=== PATIENT | male | born 1965 | race Caucasian/White ===

== ENCOUNTER 2019-11-13 18:26 | Inpatient (IN) | payer BC ==
[~2019-11-13] VITALS: Ht 188 cm; Wt 102.6 kg
--- NOTE | 2019-11-13 18:49 | NUR ---
BIB EMS FROM [facility]. PT C/O CP RADIATING DOWN LEFT ARM WHILE DOING YARDWORK THIS AM, NO RELIEF WITH REST. PT INITIAL TROP LEVEL NEGATIVE, THEN 1645 TROP 0.23. 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 PT CONNECTED TO MONITORING. WARM BLANKET PROVIDED. MD AT BEDSIDE FOR ASSESSMENT. PT TO BE ADMITTED.
[2019-11-13] MEDS ORDERED: morphine SULFATE 10 MG/ML, 1ML IV PRN (19:30)
[2019-11-13] MEDS ORDERED: HEPARIN 5,000 UNITS/ML, 1ML SQ SCH (19:30)
[2019-11-13] MEDS ORDERED: NITROGLYCERIN 0.4 MG/SPRAY SL PRN (19:30)
--- NOTE | 2019-11-13 19:31 | NUR ---
NOTIFIED VICKI BALDERAS OF [facility]. Addendum: 11/13/19 at 1932 by ALFONSO DAVID GARVIN
--- NOTE | 2019-11-13 20:17 | NUR ---
REPORT GIVEN TO IRVIN WADDELL.
[2019-11-13 20:44] VITALS: BP 151/86
[2019-11-13] MEDS ORDERED: HEPARIN 5,000 UNITS/ML, 1ML IV ONE (21:00)
[2019-11-13] MEDS ORDERED: HEPARIN 5,000 UNITS/ML, 1ML IV PRN (21:00)
[2019-11-13] MEDS ORDERED: HEPARIN 25,000 UNITS/250ML PMX 250 ML IV PRN (21:00)
[2019-11-13] MEDS: SODIUM CHLORIDE FLUSH 10ML SYR IVF SCH (21:16)
[2019-11-13] MEDS: ATORVASTATIN 40 MG TABLET PO SCH (21:17)
[2019-11-13] MEDS: DIPHENHYDRAMINE 50 MG CAPSULE PO PRN (21:17)
[2019-11-13] MEDS ORDERED: ONDANSETRON 2MG/ML, 2ML IVPush ONE (21:30)
[2019-11-13 21:57] VITALS: BP 148/70
[2019-11-14] MEDS: ACETAMINOPHEN 325 MG TABLET PO PRN ×3 (01:01→15:44)
[2019-11-14 01:07] VITALS: BP 146/70
[2019-11-14] MEDS: TEMAZEPAM 15 MG CAPSULE PO PRN (01:43)
[2019-11-14 02:12] LABS: MEAN CORPUSCULAR HEMOGLOBIN 31.1 pg (27.5-34.5); MEAN CORPUSCULAR HGB CONC 33.2 g/dL (33.2-36.2); MEAN CORPUSCULAR VOLUME 93.6 fL (81-97); MEAN PLATELET VOLUME 8.6 fL (7.4-10.4); PLATELET COUNT 207 x10^3/uL (130-400); RED BLOOD COUNT 4.59 x10^6/uL (4.38-5.82); RED CELL DISTRIBUTION WIDTH 13.8 % (9.4-14.8)
[2019-11-14 02:32] LABS: BASOPHILS # (AUTO) 0.01 x10^3/uL (0-0.1); BASOPHILS % (AUTO) 0 % (0-1); EOSINOPHILS # (AUTO) 0.02 x10^3/uL (0-0.4); EOSINOPHILS % (AUTO) 0 % (1-7); LYMPHOCYTES # (AUTO) 1.59 x10^3/uL (1-3.4); LYMPHOCYTES % (AUTO) 9 % (22-44); MD SCAN; MONOCYTES # (AUTO) 0.33 x10^3/uL (0.2-0.8); MONOCYTES % (AUTO) 2 % (2-9); NEUTROPHILS % (AUTO) 89 % (42-75)
[2019-11-14 05:50] VITALS: BP 124/73
[2019-11-14] MEDS: ASPIRIN 325 MG TABLET EC PO SCH (06:05)
[2019-11-14] MEDS: CARVEDILOL 3.125 MG TABLET PO SCH ×2 (06:05→18:10)
[2019-11-14 08:36] LABS: ALBUMIN 3.5 g/dL (3.4-5.0); ANION GAP 4 mmol/L (5-15); CALCIUM 8.9 mg/dL (8.5-10.1); CHLORIDE 108 mmol/L (98-107)
[2019-11-14 08:42] VITALS: BP 122/81
[2019-11-14 08:42] LABS: ALANINE AMINOTRANSFERASE 49 U/L (12-78); ALKALINE PHOSPHATASE 67 U/L (45-117); BILIRUBIN,TOTAL 0.5 mg/dL (0.2-1.0); CHOL/HDL RATIO 5.9; CHOLESTEROL, TOTAL 234 mg/dL (140-239); CREATININE 0.95 mg/dL (0.7-1.3); HDL CHOL % 17 % (26-37); HDL CHOLESTEROL (DIRECT) 40 mg/dL (40-60); LDL CHOLESTEROL,CALCULATED 159 mg/dL (54-169); TOTAL PROTEIN 7.2 g/dL (6.4-8.2); TRIGLYCERIDES 173 mg/dL (50-200); VLDL CHOLESTEROL 35 mg/dL (0-25)
[2019-11-14] MEDS: LISINOPRIL 5 MG TABLET PO SCH (08:48)
[2019-11-14] MEDS: SODIUM CHLORIDE FLUSH 10ML SYR IVF SCH ×2 (08:49→20:58)
[2019-11-14] MEDS ORDERED: SODIUM CHLORIDE 0.9% 1,000 ML IV SCH (11:00)
[2019-11-14] MEDS ORDERED: MIDAZOLAM 1 MG/ML, 5ML ONE (13:29)
[2019-11-14] MEDS ORDERED: PRASUGREL 10 MG TABLET ONE (13:29)
[2019-11-14] MEDS ORDERED: VERAPAMIL 2.5 MG/ML, 2ML ONE (13:29)
[2019-11-14] MEDS ORDERED: FENTANYL PF 100 MCG/2ML ONE (13:29)
[2019-11-14] MEDS ORDERED: LIDOCAINE-MPF 1%, 5ML ONE (13:30)
[2019-11-14] MEDS ORDERED: HEPARIN 1,000 UNITS/ML, 10ML ONE (13:30)
[2019-11-14] MEDS ORDERED: BIVALIRUDIN 250 MG ONE (13:30)
[2019-11-14] MEDS ORDERED: ONDANSETRON 2MG/ML, 2ML ONE (13:39)
[2019-11-14] MEDS ORDERED: BIVALIRUDIN 250 MG in SODIUM CHLORIDE 0.9% 50 ML IV SCH (14:14)
[2019-11-14 14:36] VITALS: BP 119/77
[2019-11-14] MEDS: SODIUM CHLORIDE 0.9% 1,000 ML IV SCH ×2 (15:16→22:14)
[2019-11-14 20:51] VITALS: BP 122/83
[2019-11-14] MEDS: DIPHENHYDRAMINE 50 MG CAPSULE PO PRN (20:58)
[2019-11-14] MEDS: ATORVASTATIN 40 MG TABLET PO SCH (20:58)
[2019-11-15] VITALS (7 sets, daily range): BP systolic 100–143; BP diastolic 67–86
[2019-11-15] MEDS: TEMAZEPAM 15 MG CAPSULE PO PRN (00:22)
[2019-11-15 04:56] LABS: BASOPHILS # (AUTO) 0.05 x10^3/uL (0-0.1); BASOPHILS % (AUTO) 0 % (0-1); EOSINOPHILS % (AUTO) 1 % (1-7); LYMPHOCYTES # (AUTO) 3.59 x10^3/uL (1-3.4); LYMPHOCYTES % (AUTO) 26 % (22-44); MD NO; MEAN CORPUSCULAR HGB CONC 32.7 g/dL (33.2-36.2); MEAN CORPUSCULAR VOLUME 94.9 fL (81-97); MEAN PLATELET VOLUME 8.4 fL (7.4-10.4); MONOCYTES # (AUTO) 1.19 x10^3/uL (0.2-0.8); MONOCYTES % (AUTO) 9 % (2-9); NEUTROPHILS # (AUTO) 9.05 x10^3/uL (1.8-6.8); NEUTROPHILS % (AUTO) 65 % (42-75); PLATELET COUNT 175 x10^3/uL (130-400); RED BLOOD COUNT 4.38 x10^6/uL (4.38-5.82); RED CELL DISTRIBUTION WIDTH 14.3 % (9.4-14.8)
[2019-11-15 05:04] LABS: ANION GAP 6 mmol/L (5-15); CALCIUM 8.4 mg/dL (8.5-10.1); CHLORIDE 109 mmol/L (98-107)
[2019-11-15 05:06] LABS: CREATININE 0.85 mg/dL (0.7-1.3)
[2019-11-15] MEDS: SODIUM CHLORIDE 0.9% 1,000 ML IV SCH ×2 (06:14→14:20)
[2019-11-15] MEDS: CARVEDILOL 3.125 MG TABLET PO SCH ×2 (06:23→17:52)
[2019-11-15] MEDS: ASPIRIN 325 MG TABLET EC PO SCH (06:23)
[2019-11-15] MEDS: PRASUGREL 10 MG TABLET PO SCH (08:48)
[2019-11-15] MEDS: SODIUM CHLORIDE FLUSH 10ML SYR IVF SCH ×2 (08:48→20:11)
[2019-11-15] MEDS: LISINOPRIL 5 MG TABLET PO SCH (08:48)
[2019-11-15 10:08] LABS: ALBUMIN 3.2 g/dL (3.4-5.0)
[2019-11-15 11:02] LABS: BILIRUBIN, DIRECT 0.1 mg/dL (0.1-0.2); BILIRUBIN,INDIRECT 0.6 mg/dL (0.0-2.0); BILIRUBIN,TOTAL 0.7 mg/dL (0.2-1.0)
[2019-11-15] MEDS: ACETAMINOPHEN 325 MG TABLET PO PRN (17:56)
[2019-11-15] MEDS: ATORVASTATIN 40 MG TABLET PO SCH (20:10)
[2019-11-16 00:17] VITALS: BP 105/61
[2019-11-16] MEDS: TEMAZEPAM 15 MG CAPSULE PO PRN (00:18)
[2019-11-16] MEDS: ASPIRIN 325 MG TABLET EC PO SCH (06:00)
[2019-11-16 06:08] LABS: CHLORIDE 107 mmol/L (98-107)
[2019-11-16 06:15] LABS: ALANINE AMINOTRANSFERASE 63 U/L (12-78); ALBUMIN 3.2 g/dL (3.4-5.0); ALKALINE PHOSPHATASE 69 U/L (45-117); ANION GAP 8 mmol/L (5-15); BASOPHILS # (AUTO) 0.04 x10^3/uL (0-0.1); BASOPHILS % (AUTO) 0 % (0-1); BILIRUBIN,TOTAL 0.7 mg/dL (0.2-1.0); CALCIUM 8.5 mg/dL (8.5-10.1); CREATININE 0.89 mg/dL (0.7-1.3); EOSINOPHILS # (AUTO) 0.18 x10^3/uL (0-0.4); EOSINOPHILS % (AUTO) 1 % (1-7); LYMPHOCYTES # (AUTO) 3.51 x10^3/uL (1-3.4); LYMPHOCYTES % (AUTO) 24 % (22-44); MD NO; MEAN CORPUSCULAR HEMOGLOBIN 31.3 pg (27.5-34.5); MEAN CORPUSCULAR HGB CONC 33.1 g/dL (33.2-36.2); MEAN CORPUSCULAR VOLUME 94.5 fL (81-97); MEAN PLATELET VOLUME 8.8 fL (7.4-10.4); MONOCYTES # (AUTO) 1.23 x10^3/uL (0.2-0.8); MONOCYTES % (AUTO) 9 % (2-9); NEUTROPHILS # (AUTO) 9.53 x10^3/uL (1.8-6.8); NEUTROPHILS % (AUTO) 66 % (42-75); PLATELET COUNT 194 x10^3/uL (130-400); RED BLOOD COUNT 4.72 x10^6/uL (4.38-5.82); RED CELL DISTRIBUTION WIDTH 14.1 % (9.4-14.8); TOTAL PROTEIN 7.2 g/dL (6.4-8.2)
[2019-11-16 06:16] VITALS: BP 155/84
[2019-11-16] MEDS: CARVEDILOL 3.125 MG TABLET PO SCH (06:19)
[2019-11-16 06:50] VITALS: BP 123/87
[2019-11-16] MEDS ORDERED: ACETAMINOPHEN 325 MG TABLET PO PRN (09:30)
[2019-11-16] MEDS: LISINOPRIL 5 MG TABLET PO SCH (09:45)
[2019-11-16] MEDS: PRASUGREL 10 MG TABLET PO SCH (09:45)
[2019-11-16] MEDS: SODIUM CHLORIDE FLUSH 10ML SYR IVF SCH (09:51)
[2019-11-16] MEDS ORDERED: CARV3.1212 PO (12:34)
[2019-11-16] MEDS ORDERED: ASPI-650 PO (12:34)
[2019-11-16] MEDS ORDERED: PRAS10TA4 PO (12:34)
[2019-11-16] MEDS ORDERED: LISI5TAB7 PO (12:34)
[2019-11-16] MEDS ORDERED: NITR0.4T41 SL (12:34)
[2019-11-16] MEDS ORDERED: ATOR40TA78 PO (12:34)
[2019-11-16] MEDS ORDERED: ASPI81TA45 PO (13:37)
[2019-11-16 14:45] VITALS: BP 122/75
== END 2019-11-16 16:50 | disposition home or self-care (01) | DRG 247 ==
LOC: ED 19:13 → EDIP 19:18 → OBSVTOIN 19:18 → INTOOBSV 19:18 → 5SO 20:41 → DCLOUNGE 11-16 16:33
PROVIDERS: ADMIT Internal Medicine; ATTEND Internal Medicine
PROC: 027034Z Dilation of Coronary Artery, One Artery with Drug-eluting Intraluminal Device, Percutaneous Approach (ICD-10-PCS; principal; 2019-11-14)
PROC: 03HY32Z Insertion of Monitoring Device into Upper Artery, Percutaneous Approach (ICD-10-PCS; 2019-11-14)
PROC: 4A023N7 Measurement of Cardiac Sampling and Pressure, Left Heart, Percutaneous Approach (ICD-10-PCS; 2019-11-14)
PROC: B2111ZZ Fluoroscopy of Multiple Coronary Arteries using Low Osmolar Contrast (ICD-10-PCS; 2019-11-14)
PROC: B2151ZZ Fluoroscopy of Left Heart using Low Osmolar Contrast (ICD-10-PCS; 2019-11-14)
DX: I21.4 Non-ST elevation (NSTEMI) myocardial infarction (principal); E87.1 Hypo-osmolality and hyponatremia; I47.2 Ventricular tachycardia; D72.829 Elevated white blood cell count, unspecified; E78.5 Hyperlipidemia, unspecified; G47.00 Insomnia, unspecified; G89.4 Chronic pain syndrome; I10 Essential (primary) hypertension; I25.10 Atherosclerotic heart disease of native coronary artery without angina pectoris; R74.0 Nonspecific elevation of levels of transaminase and lactic acid dehydrogenase [LDH]; J45.909 Unspecified asthma, uncomplicated; M16.0 Bilateral primary osteoarthritis of hip; F41.9 Anxiety disorder, unspecified; F32.9 Major depressive disorder, single episode, unspecified; G43.909 Migraine, unspecified, not intractable, without status migrainosus; R73.9 Hyperglycemia, unspecified; Z87.09 Personal history of other diseases of the respiratory system; Z82.49 Family history of ischemic heart disease and other diseases of the circulatory system; I25.2 Old myocardial infarction; Z82.5 Family history of asthma and other chronic lower respiratory diseases; Z87.891 Personal history of nicotine dependence; Z88.0 Allergy status to penicillin; M54.2 Cervicalgia; M54.9 Dorsalgia, unspecified
CPT/HCPCS: 36415; 76705; 80048; 80053; 80061; 80076; 83036; 83735; 84484; 85025; 85520; 87040; 93005; 93306; 93458; 93970; 99156; C1769; C1894; C9600; G0378; J0583; J1644; J2250; J2405; J3010; C1874; C1887; J7030; Q9967